=== PATIENT | male | born 1960 | race Caucasian/White ===

== ENCOUNTER 2017-08-10 10:52 | Emergency (ER) | payer OTHER ==
[~2017-08-10] VITALS: Ht 180.3 cm; Wt 74.0 kg
[2017-08-10 10:55] VITALS: TEMP 36.4; Ht 180.3 cm; Wt 74.0 kg
[2017-08-10 11:06] VITALS: O2SAT 100
[2017-08-10] MEDS ORDERED: SODIUM CHLORIDE 0.9% 1000ML 1,000 ML IV STA (11:32)
--- NOTE | 2017-08-10 11:49 | DIAGNOSTIC IMAGING REPORT ---
CHEST ONE VIEW PORTABLE CLINICAL HISTORY: 57 years-old Male presenting with CHEST PAIN. TECHNIQUE: Portable upright AP view of the chest was obtained. COMPARISON: None. FINDINGS: Cardiomediastinal silhouette normal. Lungs and pleural spaces clear. Osseous structures normal. Upper abdomen normal. IMPRESSION: 1. No acute cardiopulmonary disease. Electronically signed by: Betito Ray M.D. 08/10/2017 11:48 AM Dictated Date/Time: 08/10/2017 11:47 AM
[2017-08-10 12:22] LABS: BASO % 0.4 %; BASO ABS # 0.02 K/uL (0-0.2); EOS % 4.9 %; EOS ABS # 0.28 K/uL (0-0.5); HEMATOCRIT 41.4 % (42-52); HEMOGLOBIN 14.3 g/dL (14.0-18.0); IG# 0.01 K/uL (0.00-0.02); LYMPH % 26.5 %; MEAN CELL VOLUME 88.8 fL (80-100); MEAN CORPUSCULAR HEMOGLOBIN 30.7 pg (25-34); MEAN CORPUSCULAR HGB CONC 34.5 g/dl (32-36); MEAN PLATELET VOLUME 11.4 fL (7.4-10.4); MONO % 6.5 %; MONO ABS # 0.37 K/uL (0.11-0.59); NEUT % 61.5 %; NEUT ABS # 3.48 K/uL (1.4-6.5); PLATELET COUNT 170 K/uL (130-400); RED CELL DISTRIBUTION WIDTH CV 12.5 % (11.5-14.5); RED CELL DISTRIBUTION WIDTH SD 39.7 fL (36.4-46.3); WHITE BLOOD COUNT 5.66 K/uL (4.8-10.8)
[2017-08-10 12:50] LABS: ALBUMIN 3.8 gm/dl (3.4-5.0); BLOOD UREA NITROGEN 11 mg/dl (7-18); CARBON DIOXIDE 34 mmol/L (21-32); CREATININE 1.06 mg/dl (0.60-1.40); GLUCOSE 92 mg/dl (70-99); LIPASE 223 U/L (73-393); SODIUM 140 mmol/L (136-145)
[2017-08-10 12:54] LABS: ALKALINE PHOSPHATASE 46 U/L (45-117); ALT/SGPT 28 U/L (12-78); AST/SGOT 30 U/L (15-37); TOTAL PROTEIN 6.9 gm/dl (6.4-8.2)
[2017-08-10] MEDS ORDERED: POTA1CAP2 PO (13:32)
[2017-08-10 13:40] VITALS: BP 138/84; PULSE 68; O2SAT 99
--- NOTE | 2017-08-10 17:36 | EMERGENCY ROOM VISIT NOTE ---
ED Visit Note First contact with patient: 11:19 Chief Complaint: Palpitations and shortness of breath. History of Present Illness: Mr. Martinez is a 57-year-old white male who ambulates into the ED complaining of palpitations, shortness of breath and left arm pain. Historically patient reports he has had palpitations multiple years. He has also reports he has multiple chronic problems including chronic fatigue, chronic gastrointestinal disorders and thyroid disease. He reports 4 months ago he was seen by neurologic chiropractor and was started on multiple herbal supplements and a special diet. Patient denies any personal history of heart disease and denies any current risk factors. Additionally he reports his family has no history of heart disease but does have valvular heart disease in the form of mitral valve regurgitation. Patient reports for the last 3 weeks he reports that he has had continuous sensations of heart palpitations. He reports intermittently they have been interrupted with sensations of stopping but then returned. For the last 4 days he reports he has been constantly short of breath that worsens with lying down and then 2 days ago he started experience an achy sensation over the anterior and lateral aspect of the left shoulder. He rates this achiness sensation a 1/10. He has not identified any aggravating or alleviating factors related to this discomfort. He has not taken any medications for his discomfort prior to arrival at the hospital. He denies any other associated symptoms. He denies fevers, chills, sweats, skin eruptions, skin color changes, headache, dizziness, lightheadedness, upper respiratory tract symptoms, cough, wheezing, previous clots, claudication, cramping, recent surgery/inactivity/extended travel, orthopnea, dependent edema, abdominal pain, nausea, vomiting. Review of Systems: As noted above in history of present illness. All body systems were reviewed and found to be negative as noted above. Past Medical History: As previously noted. Current Medications: Patient denies. Allergies to Medications: Patient denies. Social History: Patient is currently employed; he feels safe in his home environment; denies current tobacco use. Physical Examination: Vital Signs: Date Time Temp Pulse Resp B/P (MAP) Pulse Ox O2 Delivery O2 Flow Rate FiO2 08/10/17 13:40 68 18 138/84 99 08/10/17 12:55 64 18 163/81 100 Room Air 08/10/17 11:26 100 Room Air 08/10/17 11:07 75 08/10/17 11:06 100 Room Air 08/10/17 10:55 36.4 74 18 178/93 100 Room Air GENERAL: 57-year-old male in mild distress due to pain, nontoxic-appearing, afebrile and hemodynamically stable. NEUROLOGICAL: Awake, alert and oriented to person, place and time. Answering questions appropriately and following commands. Normal gait. Good hand eye coordination. No focal motor or sensory deficits. SKIN: Warm, dry and pink. No soft tissue eruptions or trauma noted. HEENT: Atraumatic and normocephalic. PERRL. Sclera white and conjunctiva pink. No drainage from naris. Oral cavity moist and pink. Pharynx is nonerythematous or edematous. Speech normal. No lymphadenopathy. Trachea midline. No jugular venous distention. BACK: No tenderness over the bony spine. No CVA tenderness. THORAX: Lungs sounds are clear to auscultation and equal bilaterally with symmetrical chest wall. No wheezing, rales or rhonchi. No crepitus, tenderness , subcutaneous air or deformities noted. HEART: Regular rate and rhythm. No gallops, rubs or murmurs are appreciated. PMI is not displaced. No lifts, heaves or thrills. ABDOMEN: Flat, soft and nontender. Positive bowel sounds in all quadrants. No guarding, rigidity or organomegaly. EXTREMITIES: Moves all extremities well on command and with purpose. All distal neurovascular statuses are intact and equal bilaterally. No calf tenderness or cords. ED Course: Patient is assessed as noted above. Patient's medication list was reviewed. Laboratory Testing: Test 08/10/17 11:49 Range/Units White Blood Count 5.66 4.8-10.8 K/uL Red Blood Count 4.66 4.7-6.1 M/uL Hemoglobin 14.3 14.0-18.0 g/dL Hematocrit 41.4 42-52 % Mean Corpuscular Volume 88.8 80-100 fL Mean Corpuscular Hemoglobin 30.7 25-34 pg Mean Corpuscular Hemoglobin Concent 34.5 32-36 g/dl Platelet Count 170 130-400 K/uL Mean Platelet Volume 11.4 7.4-10.4 fL Neutrophils (%) (Auto) 61.5 % Lymphocytes (%) (Auto) 26.5 % Monocytes (%) (Auto) 6.5 % Eosinophils (%) (Auto) 4.9 % Basophils (%) (Auto) 0.4 % Neutrophils # (Auto) 3.48 1.4-6.5 K/uL Lymphocytes # (Auto) 1.50 1.2-3.4 K/uL Monocytes # (Auto) 0.37 0.11-0.59 K/uL Eosinophils # (Auto) 0.28 0-0.5 K/uL Basophils # (Auto) 0.02 0-0.2 K/uL RDW Standard Deviation 39.7 36.4-46.3 fL RDW Coefficient of Variation 12.5 11.5-14.5 % Immature Granulocyte % (Auto) 0.2 % Immature Granulocyte # (Auto) 0.01 0.00-0.02 K/uL Sodium Level 140 136-145 mmol/L Potassium Level 3.0 3.5-5.1 mmol/L Chloride Level 101 98-107 mmol/L Carbon Dioxide Level 34 21-32 mmol/L Anion Gap 5.0 3-11 mmol/L Blood Urea Nitrogen 11 7-18 mg/dl Creatinine 1.06 0.60-1.40 mg/dl Est Creatinine Clear Calc Drug Dose 80.5 ml/min Estimated GFR () 89.9 Estimated GFR (Non- 77.5 BUN/Creatinine Ratio 9.9 10-20 Random Glucose 92 70-99 mg/dl Calcium Level 9.0 8.5-10.1 mg/dl Magnesium Level 2.3 1.8-2.4 mg/dl Total Bilirubin 0.7 0.2-1 mg/dl Direct Bilirubin 0.2 0-0.2 mg/dl Aspartate Amino Transf (AST/SGOT) 30 15-37 U/L Alanine Aminotransferase (ALT/SGPT) 28 12-78 U/L Alkaline Phosphatase 46 45-117 U/L Troponin I < 0.015 0-0.045 ng/ml Total Protein 6.9 6.4-8.2 gm/dl Albumin 3.8 3.4-5.0 gm/dl Lipase 223 73-393 U/L Thyroid Stimulating Hormone (TSH) 3.300 0.300-4.500 uIu/ml Free Thyroxine 1.07 0.80-1.60 ng/dl Free Triiodothyronine 3.29 2.30-4.20 pg/ml Chemistry Specimen Hemolysis Chest X-Rays: Read by myself and the radiologist showing no acute infiltrates, effusions or pneumothorax. Normal heart silhouette and bony anatomy. EKG: Was read by myself and shows normal sinus rhythm with a ventricular rate is 71 bpm. Possible left atrial enlargement. No acute ST changes indicating ischemia, injury or infarction. No previous was available for comparison. Patient was hydrated with normal saline. Patient was reassessed multiple times during his stay in the emergency department. Patient's case was reviewed with Dr. Asencio; we agreed on diagnostic approach, treatment, disposition and plan. Patient was educated about today's findings and instructed on her treatment plan ; she verbalized understanding and agreement with this plan. Clinical Impression: Palpitations. Hypokalemia. Decision-Making: Initially my differential diagnosis I considered arrhythmia, metabolic disorder, electrolyte abnormality, acute coronary syndrome, and other causes. Disposition: Patient discharged home in stable condition; prior to departure he was reassessed and subjectively reported that he was pain-free, no longer short of breath but was still experiencing palpitations. Plan: Patient was prescribed potassium 20 mEq every day for the next 7 days. Additionally patient was encouraged to eat one banana and one orange every day for the next 7 days and increased clear fluids. Patient is encouraged to use ibuprofen or acetaminophen every 6 hours as needed for pain or alternate every 3 hours. Patient was encouraged to follow-up with his PCP for recheck in 7 days and reevaluation of his potassium. Patient was encouraged to return to the ED for worsening palpitations, worsening pain, worsening shortness of breath or any new/concerning symptoms.
== END 2017-08-10 13:42 | disposition home or self-care (01) ==
LOC: C.EDB 10:55
DX: R00.2 Palpitations (principal); R06.02 Shortness of breath; E87.6 Hypokalemia